=== PATIENT | male | born 1965 | race Caucasian/White ===

== ENCOUNTER 2018-06-19 10:07 | Observation (INO) | payer BC, OTHER ==
[~2018-06-19] VITALS: Ht 188 cm; Wt 102.0 kg
[2018-06-19 10:46] LABS: BASOPHILS % (AUTO) 0.5 % (0-1); EOSINOPHILS # (AUTO) 0.2 X10'3 (0-0.9); EOSINOPHILS % (AUTO) 3.6 % (0-6); HEMATOCRIT 49.9 % (42.0-52.0); HEMOGLOBIN 17.1 g/dl (14.0-17.9); LYMPHOCYTES % (AUTO) 38.7 % (21-51); MEAN CORPUSCULAR HEMOGLOBIN 30.7 PG (27.0-31.0); MEAN CORPUSCULAR HGB CONC 34.2 % (33.0-36.5); MEAN CORPUSCULAR VOLUME 89.8 FL (78-98); MONOCYTES # (AUTO) 0.4 X10'3 (0-0.9); MONOCYTES % (AUTO) 8.6 % (2-12); NEUTROPHILS # (AUTO) 2.6 X10'3 (1.8-7.7); NEUTROPHILS % (AUTO) 48.6 % (42-75); PLATELET COUNT 168 X10'3 (140-440); RED BLOOD COUNT 5.55 X10'6 (4.70-6.10); RED CELL DISTRIBUTION WIDTH 13.6 % (11.5-14.5); WHITE BLOOD COUNT 5.3 X10'3 (4.5-11.0)
[2018-06-19 10:50] LABS: PARTIAL THROMBOPLASTIN TIME 25 SECONDS (22-32); PROTHROMBIN TIME 9.9 SECONDS (9.0-12.0)
[2018-06-19 10:55] LABS: ALANINE AMINOTRANSFERASE 47 U/L (12-78); ALBUMIN 4.4 G/DL (3.4-5.0); ALBUMIN/GLOBULIN RATIO 1.3 (1.1-1.5); ALKALINE PHOSPHATASE 116 IU/L (46-116); ANION GAP 6 (8-16); ASPARTATE AMINO TRANSFERASE 25 U/L (10-37); BLOOD UREA NITROGEN 14 MG/DL (7-18); BUN/CREATININE RATIO 13.7 (5.4-32.0); CALCIUM 8.8 MG/DL (8.5-10.1); CHLORIDE 104 MMOL/L (99-107); CREATININE 1.02 MG/DL (0.60-1.10); GLUCOSE 135 MG/DL (70-104); POTASSIUM 3.9 MMOL/L (3.5-5.1); SODIUM 141 MMOL/L (135-145); TOTAL CARBON DIOXIDE 31.3 MMOL/L (24-32); TOTAL PROTEIN 7.7 G/DL (6.4-8.2); eGFR 77 ML/MIN
[2018-06-19 12:16] LABS: CLARITY,URINE CLEAR (Clear); COLOR,URINE YELLOW (Yellow); GLUCOSE, URINE NEGATIVE (Neg); KETONES,URINE NEGATIVE (Neg); LEUKOCYTE ESTERASE ,URINE NEGATIVE (Neg); NITRITES, URINE NEGATIVE (Neg); OCCULT BLOOD,URINE NEGATIVE (Neg); PROTEIN,URINE NEGATIVE (Neg); UROBILINOGEN,URINE 0.2 E.U/dL (0.2-1.0)
[2018-06-19 12:17] LABS: UA COLLECTION TYPE CLN CATCH MIDSTREAM
[2018-06-19] MEDS ORDERED: acetaminophen 325mg tablet PO PRN (13:20)
[2018-06-19] MEDS ORDERED: magnesium Cl slow-release 64mg tablet PO PRN (13:20)
[2018-06-19] MEDS ORDERED: HYDROcodone/acetaminophen 5mg/325mg tablet PO PRN (13:20)
[2018-06-19] MEDS ORDERED: magnesium 4gm in 100ml NS 100 ML IV PRN (13:20)
[2018-06-19] MEDS ORDERED: morphine 2 MG/ML inj. syringe IV PRN (13:20)
[2018-06-19] MEDS ORDERED: potassium Cl 20 mEq SR tablet PO PRN ×2 (13:20)
[2018-06-19] MEDS ORDERED: mag hydrox/Alum hydrox/simeth 30ml oral suspension PO PRN (13:20)
[2018-06-19] MEDS ORDERED: potassium Cl 40MEQ/NS 500ml 500 ML IV PRN ×2 (13:20)
[2018-06-19] MEDS ORDERED: ondansetron/PF 4mg/2ml inj IV PRN (13:20)
[2018-06-19] MEDS ORDERED: magnesium hydroxide 30ml (MOM) UD suspension PO PRN (13:20)
[2018-06-19] MEDS ORDERED: magnesium 1gm/100ml D5W IVPB 100 ML IV PRN (13:20)
[2018-06-19] MEDS ORDERED: nitroGLYCERIN 0.4mg SUBLingual tab SL PRN (13:25)
[2018-06-19] MEDS ORDERED: aminophylline 250mg/10ml inj. IV PRN (13:25)
[2018-06-19] MEDS ORDERED: metoprolol tartrate 1mg/ml inj IV PRN (13:25)
[2018-06-19] MEDS ORDERED: regadenoson 0.4mg/5ml syringe IV ONE (13:25)
[2018-06-19] MEDS ORDERED: regadenoson 0.4mg/5ml syringe IV PRN ×2 (13:34→13:40)
[2018-06-19] MEDS ORDERED: cloNIDine 0.1 mg tablet PO PRN (13:40)
[2018-06-19] MEDS ORDERED: NO HOME MEDS (13:52)
[2018-06-19 14:11] LABS: HEMOGLOBIN A1C 5.3 % (4.5-6.2)
[2018-06-19 14:40] VITALS: BP 136/91
[2018-06-20] VITALS (14 sets, daily range): BP systolic 121–159; BP diastolic 79–93
[2018-06-20 07:28] LABS: BASOPHILS % (AUTO) 0.4 % (0-1); EOSINOPHILS # (AUTO) 0.2 X10'3 (0-0.9); EOSINOPHILS % (AUTO) 3.9 % (0-6); HEMOGLOBIN 17.1 g/dl (14.0-17.9); LYMPHOCYTES # (AUTO) 1.9 X10'3 (1.1-4.8); MEAN CORPUSCULAR HEMOGLOBIN 30.9 PG (27.0-31.0); MEAN CORPUSCULAR HGB CONC 34.3 % (33.0-36.5); MEAN CORPUSCULAR VOLUME 90.2 FL (78-98); MONOCYTES # (AUTO) 0.5 X10'3 (0-0.9); MONOCYTES % (AUTO) 8.9 % (2-12); NEUTROPHILS # (AUTO) 2.9 X10'3 (1.8-7.7); NEUTROPHILS % (AUTO) 52.8 % (42-75); PLATELET COUNT 171 X10'3 (140-440); RED BLOOD COUNT 5.54 X10'6 (4.70-6.10); RED CELL DISTRIBUTION WIDTH 13.6 % (11.5-14.5); WHITE BLOOD COUNT 5.6 X10'3 (4.5-11.0)
[2018-06-20] MEDS: pantoprazole 40mg Tablet.DR PO SCH (07:31)
[2018-06-20 07:50] LABS: ALANINE AMINOTRANSFERASE 47 U/L (12-78); ALBUMIN 3.9 G/DL (3.4-5.0); ALBUMIN/GLOBULIN RATIO 1.1 (1.1-1.5); ALKALINE PHOSPHATASE 97 IU/L (46-116); ANION GAP 8 (8-16); ASPARTATE AMINO TRANSFERASE 28 U/L (10-37); BILIRUBIN,TOTAL 1.5 MG/DL (0.1-1.0); BLOOD UREA NITROGEN 14 MG/DL (7-18); BUN/CREATININE RATIO 15.2 (5.4-32.0); CALCIUM 8.5 MG/DL (8.5-10.1); CHLORIDE 103 MMOL/L (99-107); CHOL/HDL RATIO 3.3 (0.00-4.99); CHOLESTEROL 221 MG/DL (0-200); CREATININE 0.92 MG/DL (0.60-1.10); GLUCOSE 98 MG/DL (70-104); HDL CHOLESTEROL 67 MG/DL (35-60); LDL CHOLESTEROL 140 MG/DL (50-100); MAGNESIUM 2.2 MG/DL (1.5-2.4); PHOSPHORUS 2.3 MG/DL (2.3-4.5); POTASSIUM 3.9 MMOL/L (3.5-5.1); SODIUM 140 MMOL/L (135-145); TOTAL CARBON DIOXIDE 28.9 MMOL/L (24-32); TOTAL PROTEIN 7.3 G/DL (6.4-8.2); TRIGLYCERIDES 97 MG/DL (20-135); eGFR 86 ML/MIN
[2018-06-20] MEDS ORDERED: enoxaparin 40mg/0.4ml syringe SUBCUT SCH (08:00)
[2018-06-20] MEDS: K and/or MAG REPLACEMENT MC SCH (08:00)
[2018-06-20] MEDS ORDERED: regadenoson 0.4mg/5ml syringe IV ONE (09:27)
[2018-06-20] MEDS ORDERED: aminophylline inj. 0 ML IV ONE (09:27)
[2018-06-20] MEDS ORDERED: aspirin 325mg tablet PO SCH (16:45)
[2018-06-20] MEDS ORDERED: aspirin 325mg tablet PO ONE (16:45)
[2018-06-20] MEDS: atorvastatin 20mg tablet PO SCH (18:18)
[2018-06-20] MEDS: carVEDilol 3.125mg tablet PO SCH (19:59)
[2018-06-20] MEDS: heparin, porcine 5000 units/ml vial SQ SCH (20:00)
[2018-06-21] VITALS (14 sets, daily range): BP systolic 104–135; BP diastolic 64–85
[2018-06-21] MEDS: carVEDilol 3.125mg tablet PO SCH (07:44)
[2018-06-21] MEDS ORDERED: heparin 1,000unit/ml 10ml vial 10 ML ONE (07:45)
[2018-06-21] MEDS ORDERED: midazolam 2 mg/2 ml injection ONE (07:45)
[2018-06-21] MEDS ORDERED: fentaNYL/PF 50MCG/1 ML 2ML syringe ONE (07:45)
[2018-06-21] MEDS: pantoprazole 40mg Tablet.DR PO SCH (07:45)
[2018-06-21] MEDS ORDERED: LIDOcaine 1% 30ml preserv. free vial ONE (07:46)
[2018-06-21] MEDS ORDERED: iohexol 350 MG/ML 50ML vial IV ONE (07:46)
[2018-06-21] MEDS ORDERED: iohexol 350MG/ML 100ml bottle IV ONE (07:46)
[2018-06-21] MEDS: atorvastatin 20mg tablet PO SCH (07:46)
[2018-06-21] MEDS: heparin, porcine 5000 units/ml vial SQ SCH (07:48)
[2018-06-21] MEDS ORDERED: lisinopril 10 MG tablet PO SCH (08:00)
[2018-06-21] MEDS: K and/or MAG REPLACEMENT MC SCH (08:00)
[2018-06-21] MEDS ORDERED: diphenhydrAMINE 50 mg/ml inj ONE (08:08)
[2018-06-21] MEDS ORDERED: nitroGLYCERIN-Tridil 50MG/D5W 250 ML IV ONE (08:08)
[2018-06-21 08:11] LABS: BASOPHILS % (AUTO) 0.7 % (0-1); EOSINOPHILS # (AUTO) 0.2 X10'3 (0-0.9); EOSINOPHILS % (AUTO) 4.2 % (0-6); HEMATOCRIT 50.1 % (42.0-52.0); HEMOGLOBIN 17.2 g/dl (14.0-17.9); LYMPHOCYTES # (AUTO) 1.7 X10'3 (1.1-4.8); LYMPHOCYTES % (AUTO) 34.4 % (21-51); MEAN CORPUSCULAR HEMOGLOBIN 30.8 PG (27.0-31.0); MEAN CORPUSCULAR HGB CONC 34.3 % (33.0-36.5); MEAN CORPUSCULAR VOLUME 89.6 FL (78-98); MEAN PLATELET VOLUME 7.9 FL (7.4-10.4); MONOCYTES # (AUTO) 0.5 X10'3 (0-0.9); MONOCYTES % (AUTO) 10.6 % (2-12); NEUTROPHILS # (AUTO) 2.5 X10'3 (1.8-7.7); NEUTROPHILS % (AUTO) 50.1 % (42-75); PLATELET COUNT 164 X10'3 (140-440); RED BLOOD COUNT 5.59 X10'6 (4.70-6.10); RED CELL DISTRIBUTION WIDTH 13.2 % (11.5-14.5); WHITE BLOOD COUNT 5.1 X10'3 (4.5-11.0)
[2018-06-21 08:21] LABS: ALANINE AMINOTRANSFERASE 51 U/L (12-78); ALBUMIN 3.9 G/DL (3.4-5.0); ALBUMIN/GLOBULIN RATIO 1.2 (1.1-1.5); ALKALINE PHOSPHATASE 94 IU/L (46-116); ANION GAP 9 (8-16); ASPARTATE AMINO TRANSFERASE 27 U/L (10-37); BILIRUBIN,TOTAL 1.4 MG/DL (0.1-1.0); BLOOD UREA NITROGEN 17 MG/DL (7-18); BUN/CREATININE RATIO 18.7 (5.4-32.0); CALCIUM 8.7 MG/DL (8.5-10.1); CHLORIDE 103 MMOL/L (99-107); CREATININE 0.91 MG/DL (0.60-1.10); GLUCOSE 98 MG/DL (70-104); MAGNESIUM 2.3 MG/DL (1.5-2.4); PHOSPHORUS 2.7 MG/DL (2.3-4.5); SODIUM 141 MMOL/L (135-145); TOTAL CARBON DIOXIDE 28.9 MMOL/L (24-32); TOTAL PROTEIN 7.2 G/DL (6.4-8.2); eGFR 87 ML/MIN
[2018-06-21] MEDS ORDERED: aspirin 81mg tablet.DR PO SCH (08:30)
[2018-06-21] MEDS ORDERED: normal saline 1000ml 1,000 ML IV SCH ×2 (09:50→10:05)
[2018-06-21] MEDS ORDERED: atorvastatin 10mg tablet PO SCH (10:00)
[2018-06-21 15:10] LABS: ALBUMIN 3.6 G/DL (3.4-5.0); ANION GAP 10 (8-16); BLOOD UREA NITROGEN 19 MG/DL (7-18); BUN/CREATININE RATIO 22.6 (5.4-32.0); CALCIUM 7.9 MG/DL (8.5-10.1); CHLORIDE 103 MMOL/L (99-107); CHOL/HDL RATIO 3.3 (0.00-4.99); CHOLESTEROL 190 MG/DL (0-200); CREATININE 0.84 MG/DL (0.60-1.10); GLUCOSE 125 MG/DL (70-104); HDL CHOLESTEROL 58 MG/DL (35-60); LDL CHOLESTEROL 127 MG/DL (50-100); POTASSIUM 3.9 MMOL/L (3.5-5.1); SODIUM 138 MMOL/L (135-145); TOTAL CARBON DIOXIDE 25.4 MMOL/L (24-32); TRIGLYCERIDES 95 MG/DL (20-135); eGFR > 90 ML/MIN
[2018-06-21] MEDS ORDERED: ASPI-1071 PO (15:18)
[2018-06-21] MEDS ORDERED: FAMO-128 PO (15:18)
[2018-06-21] MEDS ORDERED: LISI10TA4 PO (15:18)
[2018-06-21] MEDS ORDERED: ATOR10TA PO (15:18)
[2018-06-21] MEDS ORDERED: COR3.125T PO (15:18)
[2018-06-22] MEDS ORDERED: atorvastatin 10mg tablet PO SCH (08:00)
== END 2018-06-21 16:35 | disposition home or self-care (01) ==
LOC: ER 10:08 → PCU 3S 13:18
PROVIDERS: ADMIT Internal Medicine; ATTEND Internal Medicine
DX: I20.0 Unstable angina (principal); E78.5 Hyperlipidemia, unspecified; E66.9 Obesity, unspecified; K21.9 Gastro-esophageal reflux disease without esophagitis; R55 Syncope and collapse; R42 Dizziness and giddiness; Z79.899 Other long term (current) drug therapy
CPT/HCPCS: 36415; 71045; 78452; 80048; 80053; 80061; 81003; 83036; 83735; 83880; 84100; 84484; 85025; 85610; 85730; 87070; 93005; 93017; 93306; 93458; 96361; 96372; 96374; 99285; A6257; A9500; C1760; C1769; G0378; J1200; J1644; J1650; J2250; J2270; J3490; J7030; Q9967; 99152; 99153; A4620; J0280; J3010

== ENCOUNTER 2019-06-26 09:17 | Emergency (ER) | payer BC, OTHER ==
[~2019-06-26] VITALS: Ht 188 cm; Wt 82.7 kg
[~2019-06-26 09:17] MED LIST: ASPI-1071 PO; ATOR10TA PO; COR3.125T PO; FAMO-128 PO; LISI10TA4 PO
[2019-06-26 10:02] LABS: BASOPHILS % (AUTO) 0.7 % (0-1); EOSINOPHILS # (AUTO) 0.2 X10'3 (0-0.9); EOSINOPHILS % (AUTO) 3.5 % (0-6); HEMATOCRIT 49.3 % (42.0-52.0); HEMOGLOBIN 17.4 g/dl (14.0-17.9); LYMPHOCYTES # (AUTO) 1.7 X10'3 (1.1-4.8); LYMPHOCYTES % (AUTO) 34.1 % (21-51); MEAN CORPUSCULAR HEMOGLOBIN 31.9 PG (27.0-31.0); MEAN CORPUSCULAR HGB CONC 35.3 g/dL (33.0-36.5); MEAN CORPUSCULAR VOLUME 90.5 FL (78-98); MEAN PLATELET VOLUME 7.7 FL (7.4-10.4); MONOCYTES # (AUTO) 0.5 X10'3 (0-0.9); MONOCYTES % (AUTO) 9.2 % (2-12); NEUTROPHILS # (AUTO) 2.6 X10'3 (1.8-7.7); NEUTROPHILS % (AUTO) 52.5 % (42-75); PLATELET COUNT 155 X10'3 (140-440); RED BLOOD COUNT 5.44 X10'6 (4.70-6.10); RED CELL DISTRIBUTION WIDTH 13.5 % (11.5-14.5)
[2019-06-26 10:12] LABS: PARTIAL THROMBOPLASTIN TIME 25 SECONDS (22-32)
[2019-06-26 10:15] LABS: ALANINE AMINOTRANSFERASE 45 U/L (12-78); ALBUMIN 4.2 G/DL (3.4-5.0); ALBUMIN/GLOBULIN RATIO 1.1 (1.1-1.5); ALKALINE PHOSPHATASE 97 IU/L (46-116); ANION GAP 7 (8-16); ASPARTATE AMINO TRANSFERASE 24 U/L (10-37); BILIRUBIN,TOTAL 1.4 MG/DL (0.1-1.0); BLOOD UREA NITROGEN 17 MG/DL (7-18); BUN/CREATININE RATIO 18.3 (5.4-32.0); CALCIUM 8.6 MG/DL (8.5-10.1); CHLORIDE 106 MMOL/L (99-107); CREATININE 0.93 MG/DL (0.60-1.10); GLUCOSE 106 MG/DL (70-104); SODIUM 140 MMOL/L (135-145); TOTAL PROTEIN 7.9 G/DL (6.4-8.2); eGFR 85 ML/MIN
[2019-06-26] MEDS ORDERED: magnesium oxide 400mg tablet PO ONE (11:25)
[2019-06-26] MEDS ORDERED: amLODIPine 5mg tablet PO ONE (11:45)
[2019-06-26 12:36] LABS: CLARITY,URINE CLEAR (Clear); COLOR,URINE YELLOW (Yellow); GLUCOSE, URINE NEGATIVE (Neg); KETONES,URINE NEGATIVE (Neg); LEUKOCYTE ESTERASE ,URINE NEGATIVE (Neg); NITRITES, URINE NEGATIVE (Neg); OCCULT BLOOD,URINE NEGATIVE (Neg); PH,URINE 5.5 (4.8-8.0); PROTEIN,URINE NEGATIVE (Neg); UA COLLECTION TYPE CLN CATCH MIDSTREAM; UROBILINOGEN,URINE 0.2 E.U/dL (0.2-1.0)
[2019-06-26] MEDS ORDERED: SIME125C43 PO (12:45)
[2019-06-26] MEDS ORDERED: SENN-250 PO (12:45)
[2019-06-26] MEDS ORDERED: ATOR10TA PO (12:45)
[2019-06-26] MEDS ORDERED: IBUP-860 PO (12:45)
[2019-06-26] MEDS ORDERED: CARV6.253 PO (12:45)
[2019-06-26] MEDS ORDERED: CALC500T11 PO (12:45)
[2019-06-26] MEDS ORDERED: CARV-50 PO (14:26)
[2019-06-26] MEDS ORDERED: carVEDilol 12.5mg tablet PO SCH (14:30)
[2019-06-26] MEDS ORDERED: carVEDilol 12.5mg tablet PO ONE (14:30)
[2019-06-26 14:48] VITALS: BP 151/97
== END 2019-06-26 14:56 | disposition home or self-care (01) ==
LOC: ER 09:18
DX: R07.89 Other chest pain (principal); I10 Essential (primary) hypertension; Z90.89 Acquired absence of other organs; Z88.5 Allergy status to narcotic agent; Z79.899 Other long term (current) drug therapy; Z79.82 Long term (current) use of aspirin
CPT/HCPCS: 36415; 71046; 80053; 81003; 83735; 84484; 85025; 85610; 85730; 93005; 99284

== ENCOUNTER 2019-06-29 18:58 | Emergency (ER) | payer BC, OTHER ==
[~2019-06-29] VITALS: Ht 188 cm; Wt 128.2 kg
[~2019-06-29 18:58] MED LIST changes: -ASPI-1071 PO; +CALC500T11 PO; +CARV-50 PO; +CARV6.253 PO; -COR3.125T PO; -FAMO-128 PO; +IBUP-860 PO; -LISI10TA4 PO; +SENN-250 PO; +SIME125C43 PO
[2019-06-29 19:24] LABS: BASOPHILS # (AUTO) 0.1 X10'3 (0-0.2); BASOPHILS % (AUTO) 1.1 % (0-1); EOSINOPHILS # (AUTO) 0.2 X10'3 (0-0.9); EOSINOPHILS % (AUTO) 2.5 % (0-6); HEMATOCRIT 48.9 % (42.0-52.0); HEMOGLOBIN 17.2 g/dl (14.0-17.9); LYMPHOCYTES # (AUTO) 3.1 X10'3 (1.1-4.8); LYMPHOCYTES % (AUTO) 40.6 % (21-51); MEAN CORPUSCULAR HEMOGLOBIN 31.7 PG (27.0-31.0); MEAN CORPUSCULAR HGB CONC 35.2 g/dL (33.0-36.5); MEAN CORPUSCULAR VOLUME 90.2 FL (78-98); MEAN PLATELET VOLUME 7.9 FL (7.4-10.4); MONOCYTES # (AUTO) 0.8 X10'3 (0-0.9); MONOCYTES % (AUTO) 9.8 % (2-12); NEUTROPHILS # (AUTO) 3.6 X10'3 (1.8-7.7); PLATELET COUNT 159 X10'3 (140-440); RED BLOOD COUNT 5.43 X10'6 (4.70-6.10); RED CELL DISTRIBUTION WIDTH 13.4 % (11.5-14.5); WHITE BLOOD COUNT 7.7 X10'3 (4.5-11.0)
[2019-06-29 19:33] LABS: PARTIAL THROMBOPLASTIN TIME 25 SECONDS (22-32)
[2019-06-29 19:35] LABS: ALANINE AMINOTRANSFERASE 41 U/L (12-78); ALBUMIN 4.2 G/DL (3.4-5.0); ALBUMIN/GLOBULIN RATIO 1.2 (1.1-1.5); ALKALINE PHOSPHATASE 91 IU/L (46-116); ANION GAP 8 (8-16); ASPARTATE AMINO TRANSFERASE 28 U/L (10-37); BLOOD UREA NITROGEN 21 MG/DL (7-18); BUN/CREATININE RATIO 21.6 (5.4-32.0); CALCIUM 8.9 MG/DL (8.5-10.1); CHLORIDE 102 MMOL/L (99-107); CREATININE 0.97 MG/DL (0.60-1.10); GLUCOSE 100 MG/DL (70-104); POTASSIUM 3.9 MMOL/L (3.5-5.1); SODIUM 138 MMOL/L (135-145); TOTAL PROTEIN 7.8 G/DL (6.4-8.2); eGFR 81 ML/MIN
[2019-06-29] MEDS ORDERED: iohexol 350MG/ML 100ml bottle IV ONE (20:33)
[2019-06-29] MEDS ORDERED: diphenhydrAMINE 50 mg/ml inj IV ONE (20:55)
--- NOTE | 2019-06-29 21:19 | NUR ---
Patient back from [facility], complaining of itchiness, Dr. Quintana ordered Benadryl to be given.
[2019-06-29 21:38] VITALS: BP 136/83
== END 2019-06-29 21:43 | disposition home or self-care (01) ==
LOC: ER 18:58
DX: R07.89 Other chest pain (principal); R42 Dizziness and giddiness; R00.2 Palpitations; Z98.890 Other specified postprocedural states; Z88.5 Allergy status to narcotic agent; Z79.899 Other long term (current) drug therapy
CPT/HCPCS: 36415; 71045; 71275; 80053; 84484; 85025; 85610; 85730; 93005; 96374; 99284; J1200; Q9967

== ENCOUNTER 2025-02-28 14:09 | Emergency (ER) | payer BC ==
[~2025-02-28] VITALS: Ht 188 cm; Wt 145.0 kg
[2025-02-28 14:15] VITALS: BP 142/80; PULSE 76; RESP 16; TEMP 97.5; O2SAT 99
--- NOTE | 2025-02-28 14:47 | Physician Documentation ---
History of Present Illness ~ Chief Complaint: Finger pain Stated Complaint: HOOK IN FINGER Time Seen by MD: 14:20 Primary Medical Doctor: DR JOMAR JOHNSON [facility] This is a 59-year-old male who presents with a fishhook embedded in his right 2nd finger, patient reports that the fishhook was clean. Patient reports last tetanus shot eight years prior. Tetanus within 5 years: Yes Medication Reconciliation Allergies: Coded Allergies: codeine (Verified Allergy, Unknown, 02/28/25) Scheduled Atorvastatin Calcium (Lipitor), 1 TAB PO DAILY, (Reported) Carvedilol (Carvedilol), 1 TABLET PO BID, (Reported) Carvedilol* (Coreg*), 1 TABLET PO BID Scheduled PRN Calcium Carbonate (Tums), 2 TAB PO Q4H PRN for indigestion/dyspepsia, (Reported) Ibuprofen (Ibu), 1 TAB PO Q6H PRN for pain, (Reported) Sennosides/Docusate Sodium (Senna-Docusate Sodium Tablet), 1 TAB PO HS PRN for constipation, (Reported) Simethicone (Gas-X), 125 MG PO Q4H PRN for gas, (Reported) Past Medical History Past Medical History: No Pertinent History Past Surgical History: other Other Past Surgical History: vasectomy Alcohol Use: None Drug Use: none Lives with: Spouse Review of Systems ROS [place] in right 2nd finger as stated above in the HPI, otherwise all systems are reviewed and negative. Physical Exam Vital Signs: Temperature: 97.5, Source: Temporal, Heart Rate: 76, Respiratory Rate: 16, BP: 142/80, Pulse Oximetry: 99, Weight: 145.000 Oxygen Flow Rate: 0 Physical Exam VITALS: Reviewed and as above. GENERAL: Alert, nontoxic appearing, no apparent distress. RESPIRATORY: No increased work of breathing, no respiratory distress, speaking in full clear sentences SKIN: Single fishhook superficially embedded in the skin of the dorsal right 2nd finger Procedures Procedures Skin foreign body removal by myself, the area was anesthetized with 1 mL of lidocaine without epinephrine achieving good anesthesia, utilizing an 18 gauge needle the nicole of the hook was covered in the hook backed out successfully, hook was intact one piece. Patient tolerated procedure well. Wound irrigated and cleaned. Dressing place. Progress Results/Orders Results/Orders Orders - NATASHA BHATTI Laceration/I&D Tray Set Up (02/28/25 14:22) Completed Orders - NATASHA BHATTI Tetanus/Pertuss/Diph Acell/Pf (Boostrix (02/28/25 14:25) Lidocaine 1% 30ml Vial (Xylocaine 1% Via (02/28/25 14:25) Vital Signs 02/28/25 14:15 Temp 97.5 Pulse 76 Resp 16 B/P (MAP) 142/80 Pulse Ox 99 O2 Flow Rate 0 Medical Decision Making Findings This 59-year-old male presented with a fishhook embedded in the skin of the dorsal aspect of right 2nd finger evidence of impaction of deeper tissues including joint or tendon, the hook was successfully removed without complication. Wound was thoroughly cleaned irrigated and dressed. Due to the official nature of the injury antibiotics were not indicated, patient provided careful return to care precautions including monitoring for development of infection and to return if evidence of infection was follow up remainder of physical exam was benign and patient is appropriate for outpatient follow up. Finger Diff Dx:Considerations: Include: Cellulitis, Contusion, Dislocation, Hematoma, Laceration, Neurovascular injury, Other (Retained foreign body) Departure Disposition: 01 HOME / SELF CARE / HOMELESS Impression: Primary Impression: [place] injury to finger Qualified Codes: S69.91XA - Unspecified injury of right wrist, hand and finger(s), initial encounter Condition: Improved Discharge Instructions: [place] Removal Additional Instructions: Keep the area clean, dry, and covered. Please return to the emergency department or your choice of medical provider should signs of infection such as pain, swelling, redness or discharge or if you develop a fever. Please follow up with your primary care provider in the next few days. Please return to the emergency department for any new or worsening concerning symptoms. Referrals: NO PRIMARY CARE PROVIDER (PCP) Education Educated: Patient Educated regarding: diagnosis, treatment, prognosis, need for follow up Signature Scribe Signature: No scribe Attestation: The note accurately reflects work and decisions made by me.BRITTA Hernandez 03/01/25 02:25 NATASHA BHATTI Feb 28, 2025 14:47
[2025-02-28] MEDS: TETanus/Pertussis (Acell)/Diphther VAC/PF (Tdap-Adult) 0.5ml syringe IMVAC ONE (15:01)
[2025-02-28] MEDS: LIDOcaine 1% 30ml preserv. free vial IJ ONE (15:05)
== END 2025-02-28 15:22 | disposition home or self-care (01) ==
LOC: ER 14:10
DX: S60.450A Superficial foreign body of right index finger, initial encounter (principal); Z88.5 Allergy status to narcotic agent; Z79.899 Other long term (current) drug therapy; W45.8XXA Other foreign body or object entering through skin, initial encounter; Y93.89 Activity, other specified; Y92.89 Other specified places as the place of occurrence of the external cause; Y99.8 Other external cause status
CPT/HCPCS: 90471; 90715; 99284